=== PATIENT | female | born 2005 | race Hispanic/Latino ===

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

== ENCOUNTER 2024-02-05 14:46 | Emergency (ER) | payer OTHER, SELFPAY ==
[2024-02-05 15:05] VITALS: BP 119/84; BMI 32.9
[2024-02-05 15:49] LABS: % Basophils 0.5 % (0-2); % Eosinophils 1.7 % (0-6); % Immature Granulocytes 0.3 % (0-0.5); % Lymphocytes 31.6 % (20.5-51.1); % Monocytes 7.1 % (1.7-9.3); % Neutrophils 58.8 % (42.2-75.2); Absolute Eosinophils 0.1 10^3/uL (0-0.7); Absolute Lymphocytes 2.4 10^3/uL (1.2-3.4); Absolute Monocytes 0.5 10^3/uL (0.1-0.6); Absolute Neutrophils 4.5 10^3/uL (1.4-6.5); Hematocrit 37.9 % (37.0-47.0); Hemoglobin 12.8 g/dL (12.0-16.0); Mean Corp Hgb Conc. 33.8 g/dL (33.0-37.0); Mean Corpuscular Hgb 29.7 pg (27.0-31.0); Mean Corpuscular Volume 87.9 fL (81.0-99.0); Nucleated Red Blood Cells % 0 %; Platelet Count 325 10^3/uL (130-400); Red Blood Cell Count 4.31 10^6/uL (4.20-5.40); Red Cell Dist. Width 12.5 % (11.5-14.5); White Blood Cell Count 7.6 10^3/uL (4.8-10.8)
[2024-02-05 16:07] LABS: Amphetamines Negative (Negative); Barbiturates Negative (Negative); Benzodiazepines Negative (Negative); Buprenorphine Negative (Negative); Cocaine Negative (Negative); Marijuana Positive (Negative); Methadone Negative (Negative); Methamphetamines Negative (Negative); Opiates Negative (Negative); Phencyclidine Negative (Negative); Tricyclic Antidepressants Negative (Negative)
[2024-02-05 16:15] LABS: Acetaminophen < 10 ug/ml (10-30); Blood Urea Nitrogen 10 mg/dl (7-17); Calcium 9.7 mg/dl (8.4-10.2); Carbon Dioxide 25 mmol/L (22-30); Chloride 107 mmol/L (98-107); Estimated Creatinine Clearance 121 ml/min; Glucose 107 mg/dl (70-99); Potassium 3.9 mmol/L (3.5-5.1); Salicylate < 1.0 mg/dl (2.0-20.0); Sodium 140 mmol/L (135-145); eGFR > 60.00
[2024-02-05 16:16] LABS: Alcohol None Detected
[2024-02-05 16:27] LABS: HCG, Serum Qualitative Screen Negative
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
[2024-02-05] MEDS: ATIVAN 1 MG PO (20:54)
[2024-02-05 22:08] VITALS: BP 131/73
[2024-02-06 08:57] VITALS: BP 98/53
== END 2024-02-06 14:13 ==
LOC: EMR 14:46
PROVIDERS: EMERGENCY PHYSICIAN Student in an Organized Health Care Education/Training Program
DX: F31.9 Bipolar disorder, unspecified (principal); Z91.51 Personal history of suicidal behavior
CPT/HCPCS: 99283; 80048; 80143; 80179; 80306; 82077; 84703; 85025

== ENCOUNTER 2024-02-18 13:49 | Emergency (ER) | payer OTHER, SELFPAY ==
[2024-02-18 14:02] VITALS: BP 124/84
--- NOTE | 2024-02-18 14:35 | ED.GENMED ---
History of Present Illness
General
Chief Complaint: Ear Problem
Source: patient and family (mother)
Exam Limitations: none
Time Seen by Provider: 02/18/24 14:21
Nursing documentation reviewed up to this point in time: agreed with
History of Present Illness
History of Present Illness:
18 yo female with right earache past week. Saw 6 days ago and put on Keflex 500 mg TID and antibiotic ear drops she has been taking with worsening pain. Denies fever/chills, sore throat, denies n/v/d, has not been swimming.
Past History
Past History
ED Past Medical History: Psychiatric (anxiety/depression)
Social History
Tobacco: Non-smoker
Alcohol: None
Drug: None
Personal: Single
Living: with family
Review of Systems
Review of Systems
Allergies reviewed?: Yes
All Other Systems: ROS reviewed and negative except as documented in HPI and ROS
Constitutional: Denies fever or chills
EENT: Reports other (right ear pain); Denies sore throat
Respiratory: Denies cough
ABD/GI: Denies abdominal pain, nausea or vomiting
: Denies dysuria or difficulty voiding
Musculoskeletal: Denies neck pain
Skin: Reports no symptoms
Neurological: Reports no symptoms
Phy Exam
Physical Exam
Physical Exam:
GENERAL: No acute distress. A&Ox3.
CONSTITUTIONAL: Afebrile.
EYES: PERRL, conjunctivae normal
Neck: Supple, no lymphadenopathy
ENMT: moist mucus membranes, Pharynx nl. R white scar appearing tissue over 3/4 of TM. TM dry and retracted. Minimal erythema, no drainage.
RESPIRATORY: Regular respirations, nonlabored, lungs clear.
CARDIOVASCULAR: Regular rate and rhythm, no murmurs, no rubs.
MUSCULOSKELETAL: Moves with ease. Well perfused.
SKIN: Warm, dry, pink
PSYCH: Normal mood and affect. Well kept, interactive and appropriate
NEUROLOGIC: Awake, alert and oriented.
Course
Vital Signs
Initial and Last Documented VS:
Initial Vital Signs
Temp Pulse Resp BP Pulse Ox
98 F 77 18 124/84 98
02/18/24 14:02 02/18/24 14:02 02/18/24 14:02 02/18/24 14:02 02/18/24 14:02
Last Documented Vital Signs
Temp Pulse Resp BP Pulse Ox
98 F 77 18 124/84 98
02/18/24 14:02 02/18/24 14:02 02/18/24 14:02 02/18/24 14:02 02/18/24 14:02
MDM/Problems Addressed
Differential Diagnosis Includes:
Acute otitis media, otitis externa,
MDM/Problems Addressed:
18 yo female with right earache past week. Saw UC 6 days ago and put on Keflex 500 mg TID and antibiotic ear drops she has been taking with worsening pain. Denies fever/chills, sore throat, denies n/v/d, has not been swimming.
R white scar appearing tissue over 3/4 of TM. TM dry and retracted. Minimal erythema, no drainage. No lymphadenitis
Afebrile
No sigh of OE, TM scarred mildly reddened, stop Keflex change to Augmentin for wider coverage, keep ENT appointment in 2 weeks
*Critical Care Note
Total Time (30-74mins, 75-104mins- exclusive of procedures): Not Applicable
ED Attending Note
-
Portions of this chart may have been created with voice recognition software.� Occasional wrong word or��sound alike� substitutions may have occurred due to the inherent limitations of voice recognition software.
Discharge Plan
Departure
Patient Disposition: Home (Routine Discharge)
Date of Disposition: 02/18/24
Time of Disposition: 14:29
Patient with high blood pressure during this ER visit?: No
Condition: Good
Discharge Problem:
OM (otitis media), acute
Prescriptions:
New
amoxicillin-pot clavulanate 875-125 mg tablet
1 tab PO BID Qty: 20 0RF
No Action
ketoconazole 2 % Shampoo
1 applic TOPICAL HS
Patient Comments:
02/06/24: filled 01/23/24, to take for 14 days
olanzapine 2.5 mg Tablet
2.5 mg PO HS
albuterol sulfate 90 mcg/actuation Hfa Aerosol Inhaler
2 puff INHALATION R Q6HPRN PRN (Reason: sob)
fluticasone propionate [Flonase] 50 mcg/actuation [place],Suspension
1 spray INTRANASAL DAILYPRN PRN (Reason: allergies)
fluticasone propion-salmeterol [Advair HFA] 45-21 mcg/actuation Hfa Aerosol Inhaler
2 puff INHALATION R BID
venlafaxine 75 mg Tablet Extended Release 24hr
75 mg PO DAILY
Referrals:
Randal Lin MD [Active] - Next open appointment
Activity Restrictions/Additional Instructions:
As we discussed stop the Cefalexin and start the Augmentin Amoxicillin with clavulanate).
Ibuprofen (Advil) 600 mg (with food) every 6 hours as needed for pain.
You may continue the antibiotic ear drops
Keep your ENT appointment in 3 weeks
You may call Dr. Lin and see if he can see you sooner.
Interventions
Interventions:
*Risk Screen - Suicide Last Done: 02/18/24 14:02
*General Assessment Last Done: 02/18/24 14:02
*Neglect/Abuse Screening Last Done: 02/18/24 14:02
ED- Fall Risk Assessment Last Done: 02/18/24 14:50
*ED COVID-19 Vaccine History Last Done: 02/18/24 14:49
*Nursing Disposition Last Done: 02/18/24 14:50
Discharge Date and Time
Discharge Date/Time: 02/18/24 14:51
Print Language: YORUBA
== END 2024-02-18 14:51 | disposition home or self-care (01) ==
LOC: EMR 13:49
PROVIDERS: EMERGENCY PHYSICIAN Emergency Medicine; FAMILY PHYSICIAN Pediatrics
DX: H66.91 Otitis media, unspecified, right ear (principal); F32.A Depression, unspecified; F41.9 Anxiety disorder, unspecified; K21.9 Gastro-esophageal reflux disease without esophagitis; J45.909 Unspecified asthma, uncomplicated; F17.290 Nicotine dependence, other tobacco product, uncomplicated
CPT/HCPCS: 99283

== ENCOUNTER → 2024-03-13 15:23 | Outpatient (REF) | payer OTHER, SELFPAY | LOC: RAD 15:23 | PROVIDERS: ATTENDING PHYSICIAN Emergency Medicine | DX: R07.89 Other chest pain (principal) | CPT/HCPCS: 71046; 71120 ==

== ENCOUNTER 2024-03-22 16:16 | Emergency (ER) | payer OTHER, SELFPAY ==
[2024-03-22 16:27] VITALS: BP 127/76
--- NOTE | 2024-03-22 18:07 | ED.GENMED ---
History of Present Illness
General
Chief Complaint: Ear Problem
Source: patient and family
Exam Limitations: none
Time Seen by Provider: 03/22/24 16:53
Nursing documentation reviewed up to this point in time: agreed with
History of Present Illness
History of Present Illness:
18-year-old female presenting to the emergency department today with concerns of ongoing ear discomfort over the past few months 2 months ago she was treated for ear infection with Augmentin had some mild relief but then recurrence occurred. She
has not been able to follow-up with an ENT doctor. Denies any chest pain shortness of breath or fevers.
Past History
Past History
ED Past Medical History: Psychiatric (anxiety/depression)
Social History
Tobacco: Non-smoker
Alcohol: None
Drug: None
Personal: Single
Living: with family
Review of Systems
Review of Systems
Allergies reviewed?: Yes
All Other Systems: ROS reviewed and negative except as documented in HPI and ROS
Phy Exam
Physical Exam
Physical Exam:
GENERAL: Alert , in no apparent distress
EYE: pupils equal and reactive
NECK: Supple, no significant adenopathy.
ENT: Right tympanic membrane with what appears to be serous effusion, left ear with some mild redness and irritation as well. o/p clr, mmm.
CARDIAC: Regular rate and rhythm .
LUNGS: Clear breath sounds bilaterally, no acute respiratory distress, no wheezes/rales/rhonchi
ABDOMEN: Soft, without focal tenderness, no r/g, no cvat
NEUROLOGICAL: Alert and oriented, no focal neuro deficits
SKIN: Warm and dry, skin intact.
MUSCULOSKELETAL: No edema, well perfused.
PSYCH: Normal and appropriate interaction.
Course
Orders/Labs/Results
Orders:
Orders
03/22/24 18:05
Amoxicillin 875 mg/Clav 125 mg [Augmentin 875 mg/125 mg] 1 tablet PO NOW STA
Dexamethasone [Decadron] 10 mg PO NOW STA
Vital Signs
Initial and Last Documented VS:
Initial Vital Signs
Temp Pulse Resp BP Pulse Ox
98.9 F 84 16 127/76 98
03/22/24 16:27 03/22/24 16:27 03/22/24 16:27 03/22/24 16:27 03/22/24 16:27
Last Documented Vital Signs
Temp Pulse Resp BP Pulse Ox
98.9 F 84 16 127/76 98
03/22/24 16:27 03/22/24 16:27 03/22/24 16:27 03/22/24 16:27 03/22/24 16:27
MDM/Problems Addressed
MDM/Problems Addressed:
18-year-old female presenting to the emergency department today with concerns of bilateral ear. Worsening over the past few days. Upon arrival here patient does have normal vital signs but signs of potential ongoing effusion and infection to the
right ear. Started on a steroid and advised to use Flonase and also given antibiotic. She was given information for close ENT follow-up. Return precautions given otherwise stable for outpatient management.
*Critical Care Note
Total Time (30-74mins, 75-104mins- exclusive of procedures): Not Applicable
ED Attending Note
-
Portions of this chart may have been created with voice recognition software.� Occasional wrong word or��sound alike� substitutions may have occurred due to the inherent limitations of voice recognition software.
Discharge Plan
Departure
Patient Disposition: Home (Routine Discharge)
Date of Disposition: 03/22/24
Time of Disposition: 18:07
Patient with high blood pressure during this ER visit?: No
Condition: Good
Covid-19: Not Applicable
Discharge Problem:
Chronic otitis media with serous effusion
Instructions: Serous Otitis Media (DC)
Prescriptions:
New
fluticasone propionate [24 Hour Allergy Relief] 50 mcg/actuation spray,suspension
1 spray intranasal BID Qty: 16 0RF
prednisone 20 mg tablet
40 mg PO DAILY 3 Days Qty: 6 0RF
amoxicillin-pot clavulanate 875-125 mg tablet
1 tab PO BID 7 Days Qty: 14 0RF
No Action
ketoconazole 2 % Shampoo
1 applic TOPICAL HS
Patient Comments:
02/06/24: filled 01/23/24, to take for 14 days
olanzapine 2.5 mg Tablet
2.5 mg PO HS
albuterol sulfate 90 mcg/actuation Hfa Aerosol Inhaler
2 puff INHALATION R Q6HPRN PRN (Reason: sob)
fluticasone propionate [Flonase] 50 mcg/actuation [place],Suspension
1 spray INTRANASAL DAILYPRN PRN (Reason: allergies)
fluticasone propion-salmeterol [Advair HFA] 45-21 mcg/actuation Hfa Aerosol Inhaler
2 puff INHALATION R BID
venlafaxine 75 mg Tablet Extended Release 24hr
75 mg PO DAILY
amoxicillin-pot clavulanate 875-125 mg tablet
1 tab PO BID Qty: 20 0RF
Referrals:
Laura Starks MD [Family Provider] -
Kapil Quinteros MD [Active] - Follow up in 2-3 days
Activity Restrictions/Additional Instructions:
You came to the emergency department today with concerns of ongoing ear discomfort. You are found to have ongoing effusion to your ear which could be a mechanical problem but also potentially ongoing infection. Please follow closely with the ENT
return to the emergency department any worsening, new or concerning symptoms.
Interventions
Interventions:
*Risk Screen - Suicide Last Done: 03/22/24 16:27
*Neglect/Abuse Screening Last Done: 03/22/24 16:27
*Nursing Disposition Last Done: 03/22/24 18:27
Discharge Date and Time
Discharge Date/Time: 03/22/24 18:28
Print Language: ARMENIAN
[2024-03-22] MEDS: AUGMENTIN 875 MG/125 MG 1 TABLET PO (18:19)
[2024-03-22] MEDS: DECADRON 10 MG PO (18:19)
== END 2024-03-22 18:28 | disposition home or self-care (01) ==
LOC: EMR 16:16
PROVIDERS: EMERGENCY PHYSICIAN Emergency Medicine; FAMILY PHYSICIAN Emergency Medicine
DX: H65.21 Chronic serous otitis media, right ear (principal)
CPT/HCPCS: 99283

== ENCOUNTER 2024-03-23 09:56 | Emergency (ER) | payer OTHER, SELFPAY ==
[2024-03-23 10:04] VITALS: BP 136/72
--- NOTE | 2024-03-23 10:21 | ED.GENMED ---
History of Present Illness
General
Chief Complaint: Ear Problem
Source: patient
Exam Limitations: none
Time Seen by Provider: 03/23/24 10:07
History of Present Illness
History of Present Illness:
See MDM
Past History
Past History
ED Past Medical History: Psychiatric (anxiety/depression)
ED Past Surgical History: None
Social History
Tobacco: Non-smoker
Alcohol: None
Drug: None
Personal: Single
Living: with family
Phy Exam
Physical Exam
Physical Exam:
See MDM
Course
Orders/Labs/Results
Orders:
Orders
03/23/24 10:19
Neomycin/Polymyxin/Hc [Cortisporin Otic Suspension] See Dose Instructions OTIC NOW STA
Oxycodone/Acetaminophen [Percocet 5/325] 1 tablet PO NOW STA
Vital Signs
Initial and Last Documented VS:
Initial Vital Signs
Temp Pulse Resp BP Pulse Ox
97.6 F 82 16 136/72 98
03/23/24 10:04 03/23/24 10:04 03/23/24 10:04 03/23/24 10:04 03/23/24 10:04
Last Documented Vital Signs
Temp Pulse Resp BP Pulse Ox
97.6 F 82 16 136/72 98
03/23/24 10:04 03/23/24 10:04 03/23/24 10:04 03/23/24 10:04 03/23/24 10:04
MDM/Problems Addressed
Differential Diagnosis Includes:
HPI and MDM Narrative:
18-year-old female presenting with persistent left ear pain. She was seen yesterday and diagnosed with otitis media. She was placed on Augmentin. Although she has not yet picked up the medicine, she states the pain is worse and feels different.
On exam, she has evidence of otitis externa. I also noted a cotton swab foreign body against her eardrum. We discussed cessation of using cotton swabs. The eardrum is obstructed. I discussed that the cotton swab will need to be removed but she
will be unable to comply with removal based on the sensitivity and narrowing of her external canal. Patient acknowledges understands that. She must follow-up with ENT to have it removed. Will place on Cortisporin drops and place ear wick.
Because her eardrum is obstructed and she was already diagnosed otitis media, I discussed also taking the Augmentin that was prescribed
Physical exam
General: Well appearing and non-toxic
HEENT: protecting airway. Left otitis externa. Q-tip cotton foreign body along the left TM
Neck: appears supple
CV: No evidence of cyanosis
Resp: No accessory muscle use
Abd: Non-distended
Extremities: No deformities
Neuro: alert
Psych: Normal affect
Skin: Intact
Problems Addressed including Acute and Chronic Conditions affecting care:
1. Otitis externa
Acuity: acute
Prognosis: stable
Details: Will start Cortisporin and place ear wick
2. Ear foreign body
Acuity: acute
Prognosis: stable
Details: Discussed having this removed by ENT once the swelling improves and her canal
Updates
Ear wick was placed and patient started on Cortisporin drops. This was started in the ER
Differential Diagnosis (but not limited to): Otitis media, otitis externa
Testing considered: CT facial bones but there is no clinical evidence of mastoiditis
Drug therapy (if applicable): OTC meds, please see d/c instruction regarding Rx drugs
Amount and/or Complexity of Data Reviewed
Clinical info obtained from: Patient
External data reviewed: N/A
Labs I independently reviewed (but not limited to): N/A
Radiology: N/A
Pulse Ox: not hypoxic
EKG independently reviewed: N/A
Tool And Cutter Grinder: N/A
Critical Care: N/A
Risk of Complication:
Social Determinants of health: Good social support
Discussed with other providers: N/A
Escalation of Care includes Admit/Obs: After being observed in the Emergency Department, pt stable for discharge.
Occasional wrong word or 'sound a like' substitutions may have occurred due to the inherent limitations of voice recognition software. Read the chart carefully and recognize, using context, where substitutions have occurred.
*Critical Care Note
Total Time (30-74mins, 75-104mins- exclusive of procedures): Not Applicable
ED Attending Note
-
Portions of this chart may have been created with voice recognition software.� Occasional wrong word or��sound alike� substitutions may have occurred due to the inherent limitations of voice recognition software.
Discharge Plan
Departure
Patient Disposition: Home (Routine Discharge)
Date of Disposition: 03/23/24
Time of Disposition: 10:29
Patient with high blood pressure during this ER visit?: No
Discharge Problem:
Acute Otitis Externa
Instructions: Outer Ear Infection (DC)
Prescriptions:
No Action
ketoconazole 2 % Shampoo
1 applic TOPICAL HS
Patient Comments:
02/06/24: filled 01/23/24, to take for 14 days
olanzapine 2.5 mg Tablet
2.5 mg PO HS
albuterol sulfate 90 mcg/actuation Hfa Aerosol Inhaler
2 puff INHALATION R Q6HPRN PRN (Reason: sob)
fluticasone propionate [Flonase] 50 mcg/actuation [place],Suspension
1 spray INTRANASAL DAILYPRN PRN (Reason: allergies)
venlafaxine 75 mg Tablet Extended Release 24hr
75 mg PO DAILY
amoxicillin-pot clavulanate 875-125 mg tablet
1 tab PO BID Qty: 20 0RF
Referrals:
Laura Starks MD [Family Provider] -
Edilma Dodge MD [Active] -
Activity Restrictions/Additional Instructions:
Please use 4 drops in your left ear 3-4 times a day. The ear wick will come out of your ear on its own. You will need to follow-up with the ENT doctor to remove the Q-tip cotton from your ear. The ear is too swollen to have it removed today.
Interventions
Interventions:
*Risk Screen - Suicide Last Done: 03/23/24 10:01
*General Assessment Last Done: 03/23/24 10:48
*Neglect/Abuse Screening Last Done: 03/23/24 10:01
ED- Fall Risk Assessment Last Done: 03/23/24 10:48
*ED COVID-19 Vaccine History Last Done: 03/23/24 10:48
Discharge Date and Time
Print Language: URDU
[2024-03-23 10:48] VITALS: BMI 25.2
[2024-03-23] MEDS: PERCOCET 5/325 1 TABLET PO (10:54)
[2024-03-23] MEDS: CORTISPORIN OTIC SUSPENSION 1 DROP OTIC (11:13)
[2024-03-23 11:20] VITALS: BP 140/61
== END 2024-03-23 11:20 | disposition home or self-care (01) ==
LOC: EMR 09:56
PROVIDERS: EMERGENCY PHYSICIAN Student in an Organized Health Care Education/Training Program; FAMILY PHYSICIAN Emergency Medicine
DX: H60.502 Unspecified acute noninfective otitis externa, left ear (principal); T16.2XXA Foreign body in left ear, initial encounter; W44.8XXA Other foreign body entering into or through a natural orifice, initial encounter
CPT/HCPCS: 99283

== ENCOUNTER 2024-08-11 09:11 | Emergency (ER) | payer OTHER, SELFPAY ==
[2024-08-11 09:14] VITALS: BP 137/88
--- NOTE | 2024-08-11 10:46 | ED.GENMED ---
History of Present Illness
General
Chief Complaint: Abdominal Symptoms
Source: patient
Time Seen by Provider: 08/11/24 10:38
History of Present Illness
History of Present Illness:
18-year-old female with past medical history of anxiety and depression presenting to the ER for evaluation of nausea vomiting and diarrhea that has been constant since 3 AM although patient does note that since arriving to the ER her vomiting has
improved. She notes associated generalized abdominal cramping. No fevers, chills, rigors or other URI-like symptoms. No known sick contacts. Patient notes recently quitting Bacot products, notes that she did have a half of an alcoholic beverage
yesterday but does not believe the symptoms to be related. Surgical history noncontributory. Patient notes that she has been on her menstrual for the last 3 weeks which is not normal for her and she plans on following up with her [employer]OR for this.
States no concern for .
Past History
Past History
ED Past Medical History: GERD and Psychiatric (anxiety/depression)
ED Past Surgical History: None
Social History
Tobacco: Former smoker
Alcohol: Occasional
Drug: None
Personal: Single
Living: with family
Review of Systems
Review of Systems
All Other Systems: ROS reviewed and negative except as documented in HPI and ROS
Phy Exam
Physical Exam
Physical Exam:
GENERAL: Alert , in no apparent distress
EYE: clear conjunctiva b/l
HEAD: NCAT
ENT: mmm.
CARDIAC: Borderline tachycardic rate and rhythm, no murmur
LUNGS: Clear breath sounds bilaterally, no acute respiratory distress, no wheezes/rales/rhonchi
ABDOMEN: Soft, without focal tenderness, no r/g, no cvat, negative Price sign, no tenderness at McBurney's point
NEUROLOGICAL: Alert and oriented
SKIN: Warm and dry, skin intact.
MUSCULOSKELETAL: well perfused.
PSYCH: Normal and appropriate interaction.
Scores
Heart Failure Risk
Heart Failure Risk Score: Not Applicable
Heart Score for Chest Pain Patients
STEMI patient?: Not applicable
Withdrawal Assessment of Alcohol
Withdrawal Assessment Completed?: Not applicable
Course
Orders/Labs/Results
Orders:
Orders
08/11/24 10:44
0.9% Sodium Chloride 1000 ml [Nss] 1,000 ml IV BOLUS
Ketorolac [Toradol] 30 mg IV NOW STA
Ondansetron Injectable [Zofran] 4 mg IV NOW STA
Test Result ONCE
08/11/24 11:03
Complete Blood Count/With Diff Urgent
Comprehensive Metabolic Panel Urgent
HCG, Serum Qualitative Screen Urgent
Lipase Urgent
Abnormal Lab Results
08/11/24
11:03
Absolute Neuts (auto) 7.6 H 10^3/uL
(1.4-6.5)
Absolute Lymphs (auto) 0.5 L 10^3/uL
(1.2-3.4)
Neutrophils % 88.7 H %
(42.2-75.2)
Lymphocytes % 6.3 L %
(20.5-51.1)
BUN 18 H mg/dl
(7-17)
Glucose 131 H mg/dl
(70-99)
AST 48 H U/L
(14-36)
ALT 92 H U/L
(0-35)
08/11/24 11:03
08/11/24 11:03
Vital Signs
Initial and Last Documented VS:
Initial Vital Signs
Temp Pulse Resp BP Pulse Ox
98.2 F 99 16 137/88 98
08/11/24 09:14 08/11/24 09:14 08/11/24 09:14 08/11/24 09:14 08/11/24 09:14
Last Documented Vital Signs
Temp Pulse Resp BP Pulse Ox
98.2 F 77 16 137/88 99
08/11/24 09:14 08/11/24 12:31 08/11/24 12:31 08/11/24 09:14 08/11/24 12:31
MDM/Problems Addressed
Differential Diagnosis Includes:
gastroenteritis, , dehydration, electrolyte derangement, flu
MDM/Problems Addressed:
18-year-old female presenting to the ER for evaluation of nausea vomiting and diarrhea with acute onset this morning around 3 AM. Still with mild generalized cramping although noting her nausea and vomiting are improved over the last hour or so.
Mildly tachycardic on arrival so do suspect some degree of mild dehydration. Will check labs including and treat with fluids, Zofran and Toradol. Reassessment following
*Pulse Oximetry
Patient hypoxic: no
*Critical Care Note
Total Time (30-74mins, 75-104mins- exclusive of procedures): Not Applicable
Patient Management
Escalation/DeEscalation of care consider admission/obs:
On reassessment patient is feeling significantly improved and feels ready to be discharged home. P.o. trial successful. Prescription for Zofran sent to pharmacy. Patient aware of return precautions to the ER.
ED Attending Note
-
Portions of this chart may have been created with voice recognition software.� Occasional wrong word or��sound alike� substitutions may have occurred due to the inherent limitations of voice recognition software.
Discharge Plan
Departure
Patient Disposition: Home (Routine Discharge)
Date of Disposition: 08/11/24
Time of Disposition: 12:24
Patient with high blood pressure during this ER visit?: No
Discharge Problem:
Nausea vomiting and diarrhea
Instructions: Nausea and Vomiting, Adult (DC)
Prescriptions:
New
ondansetron 4 mg tablet,disintegrating
4 mg PO TIDPRN PRN (Reason: nausea/vomiting) Qty: 10 0RF
No Action
ketoconazole 2 % Shampoo
1 applic TOPICAL HS
Patient Comments:
02/06/24: filled 01/23/24, to take for 14 days
olanzapine 2.5 mg Tablet
2.5 mg PO HS
albuterol sulfate 90 mcg/actuation Hfa Aerosol Inhaler
2 puff INHALATION R Q6HPRN PRN (Reason: sob)
fluticasone propionate [Flonase] 50 mcg/actuation [place],Suspension
1 spray INTRANASAL DAILYPRN PRN (Reason: allergies)
venlafaxine 75 mg Tablet Extended Release 24hr
75 mg PO DAILY
amoxicillin-pot clavulanate 875-125 mg tablet
1 tab PO BID Qty: 20 0RF
Referrals:
Laura Starks MD [Family Provider] -
Interventions
Interventions:
*Risk Screen - Suicide Last Done: 08/11/24 09:14
*General Assessment Last Done: 08/11/24 11:13
*Neglect/Abuse Screening Last Done: 08/11/24 09:14
*ED COVID-19 Vaccine History Last Done: 08/11/24 11:13
*Nursing Disposition Last Done: 08/11/24 12:44
JR-Kfjplt-Rhnmtvbusa Assessment Last Done: 08/11/24 11:13
Discharge Date and Time
Discharge Date/Time: 08/11/24 12:45
Print Language: BULGARIAN
[2024-08-11] MEDS: NSS 1000 IV (11:03)
[2024-08-11] MEDS: ZOFRAN 4 MG IV (11:08)
[2024-08-11] MEDS: TORADOL 30 MG IV (11:08)
[2024-08-11 11:22] LABS: % Basophils 0.2 % (0-2); % Eosinophils 0.4 % (0-6); % Immature Granulocytes 0.2 % (0-0.5); % Lymphocytes 6.3 % (20.5-51.1); % Monocytes 4.2 % (1.7-9.3); % Neutrophils 88.7 % (42.2-75.2); Absolute Lymphocytes 0.5 10^3/uL (1.2-3.4); Absolute Monocytes 0.4 10^3/uL (0.1-0.6); Absolute Neutrophils 7.6 10^3/uL (1.4-6.5); Hematocrit 39.7 % (37.0-47.0); Hemoglobin 13.3 g/dL (12.0-16.0); Mean Corp Hgb Conc. 33.5 g/dL (33.0-37.0); Mean Corpuscular Hgb 30.1 pg (27.0-31.0); Mean Corpuscular Volume 89.8 fL (81.0-99.0); Mean Platelet Volume 9.7 fL (7.4-10.4); Nucleated Red Blood Cells % 0 %; Platelet Count 291 10^3/uL (130-400); Red Blood Cell Count 4.42 10^6/uL (4.20-5.40); Red Cell Dist. Width 12.6 % (11.5-14.5); White Blood Cell Count 8.6 10^3/uL (4.8-10.8)
[2024-08-11 11:29] LABS: HCG, Serum Qualitative Screen Negative
[2024-08-11 12:02] LABS: ALT (SGPT) 92 U/L (0-35); AST (SGOT) 48 U/L (14-36); Alkaline Phosphatase 74 U/L (38-126); Blood Urea Nitrogen 18 mg/dl (7-17); Calcium 9.4 mg/dl (8.4-10.2); Carbon Dioxide 26 mmol/L (22-30); Chloride 100 mmol/L (98-107); Glucose 131 mg/dl (70-99); Lipase 71 U/L (23-300); Potassium 4.5 mmol/L (3.5-5.1); Sodium 137 mmol/L (135-145); Total Bilirubin 0.8 mg/dl (0.2-1.3); eGFR > 60.00
== END 2024-08-11 12:45 | disposition home or self-care (01) ==
LOC: EMR 09:11
PROVIDERS: Physician Assistant Medical; EMERGENCY PHYSICIAN Student in an Organized Health Care Education/Training Program; FAMILY PHYSICIAN Emergency Medicine
DX: R11.2 Nausea with vomiting, unspecified (principal); R19.7 Diarrhea, unspecified; F41.9 Anxiety disorder, unspecified; F32.A Depression, unspecified; Z87.891 Personal history of nicotine dependence
CPT/HCPCS: 99284; 96374; 96375; 96361; 80053; 83690; 84703; 85025